=== PATIENT | female | born 1990 | race African-American/Black ===

== ENCOUNTER 2019-08-14 08:35 | Emergency (ER) | payer OTHER ==
[~2019-08-14] VITALS: Ht 170.2 cm; Wt 93.0 kg
[2019-08-14 09:03] VITALS: BP 144/93
[2019-08-14] MEDS ORDERED: NORFLEX100 MG PO (09:17)
[2019-08-14] MEDS ORDERED: TRAMADOL 50 MG50 MG PO (09:17)
[2019-08-14] MEDS ORDERED: NAPROSYN500 MG PO (09:17)
== END 2019-08-14 09:27 | disposition home or self-care (01) ==
LOC: ER 08:35
DX: M54.5 Low back pain (principal); F17.210 Nicotine dependence, cigarettes, uncomplicated